=== PATIENT | female | born 1940 | race Caucasian/White ===

== ENCOUNTER → 2016-09-03 | Outpatient (CLI) | payer OTHER ==
[2016-02-16 01:36] VITALS: BP 136/60
[~2016-09-03] MED LIST: CONTRAST GIVEN MC PRN; IOHEXOL 240 MG/ML 50ML VIAL. PO ONE; IOHEXOL 300 MG/ML 75 ML VIAL IV ONE; METF500T4 PO; NAPR500T3 PO
--- NOTE | 2016-09-03 11:11 | RAD ---
Indication malignant neoplasm right breast. Staging. Axial images through the chest, abdomen and pelvis were obtained. Both oral and IV contrast were administered. Approximately 75 cc of Omnipaque 300 was administered intravenously. No prior CT imaging of the chest, abdomen or pelvis is available. CT chest: Findings. Changes of a right mastectomy are noted. The thoracic aorta appears unremarkable. There is no significant hilar or mediastinal adenopathy. A moderate hiatus hernia is noted. No acute parenchymal infiltrate is seen. There is no evidence of a dominant soft tissue mass in either lung. There is a small 4 to 5 mm nodule along the fissure in the right lung, image 25 series 2. This is likely benign. Follow-up imaging, along the lines of the Fleischner criteria, should be considered. There is no evidence of metastatic disease. There is mild scoliosis and there are degenerative changes in the thoracic spine. CT abdomen and pelvis: Findings. There is a low-density 1 cm mass in the right lobe of the liver. This is not completely characterized on this exam. It may represent an hemangioma. Other etiologies are not entirely excluded but malignant, metastatic, disease is felt unlikely. This could be further evaluated with targeted ultrasound. A definite significant finding in the liver is not seen. The spleen appears unremarkable. The gallbladder appears grossly normal. The pancreas appears unremarkable. No adrenal or renal anomalies are seen. An acute finding in the abdomen is not apparent. No acute or significant finding is seen in the pelvis. Degenerative changes are noted in the lumbar spine. IMPRESSION: No acute finding seen in the chest, abdomen or pelvis. No definite evidence of metastatic disease. Small nodule along the fissure in the right lung measuring approximately 4 mm. 1 cm mass in the liver, probably benign. Targeted ultrasound should be considered. Chronic musculoskeletal changes PQRS Compliance Statement: One or more of the following individualized dose reduction techniques were utilized for this examination: 1. Automated exposure control 2. Adjustment of the mA and/or kV according to patient size 3. Use of iterative reconstruction technique
--- NOTE | 2016-09-03 13:11 | RAD ---
Indication breast malignancy. Staging. Whole body static images were obtained. No prior bone scan imaging is available. 25 mCi of technetium labeled MDP was administered. There is increased uptake associated with the lower thoracic and lumbar spine which is almost certainly degenerative.. Scoliosis and substantial degenerative changes are noted on the CT examination performed the same day. Slightly increased uptake in the right knee is also likely degenerative. No abnormal uptake suggesting osseous metastatic disease is seen. Normal activity is seen in both kidneys and the urinary bladder. IMPRESSION: Negative study for osseous metastatic disease
== END | disposition home or self-care (01) ==
LOC: NM 08:52
PROVIDERS: ATTEND Internal Medicine Hematology & Oncology
DX: C50.911 Malignant neoplasm of unspecified site of right female breast (principal); R91.1 Solitary pulmonary nodule; K76.89 Other specified diseases of liver
CPT/HCPCS: 71260; 74177; 78306; 96374; A9503; Q9966; Q9967

== ENCOUNTER → 2016-09-30 | Outpatient (CLI) | payer OTHER ==
[2016-02-16 01:36] VITALS: BP 136/60
[~2016-09-30] MED LIST changes: -CONTRAST GIVEN MC PRN; -IOHEXOL 240 MG/ML 50ML VIAL. PO ONE; -IOHEXOL 300 MG/ML 75 ML VIAL IV ONE
--- NOTE | 2016-09-30 11:38 | RAD ---
EXAM: ABDOMINAL ULTRASOUND. HISTORY: Liver lesion. COMPARISON: 09/03/2016. FINDINGS: Sonographic evaluation of the abdomen was performed. The hepatic lesion of concern in the right lobe is not appreciated sonographically. No suspicious lesions are seen. The spleen measures 10.1 cm. The gallbladder is unremarkable without evidence of stones, wall thickening or pericholecystic fluid. There is no sonographic Rosenberg sign. The common duct measures 2 mm. The visualized portions of the head and body of the pancreas reveal no abnormality. The right kidney measures 9.8 cm. Cortical thickness and echogenicity are preserved. There is no hydronephrosis. The left kidney measures 10.4 cm. Cortical thickness and echogenicity are preserved. A 2.7 x 2.3 cm fluid echogenicity focus within the inferior aspect of the left collecting system is most likely a collection of small peripelvic cysts rather than a dilated calyx on comparison with prior CT. There is no hydronephrosis. The visualized portions of the abdominal aorta and inferior vena cava are grossly patent and normal in caliber. IMPRESSION: 1. The right hepatic lobe lesion of concern is not appreciated sonographically. A hemangioma is favored based on CT. MRI with/without contrast. Definitively characterize versus follow-up on surveillance CT.
== END ==
LOC: US 09:44
PROVIDERS: ATTEND Internal Medicine Hematology & Oncology
DX: D18.09 Hemangioma of other sites (principal); C50.911 Malignant neoplasm of unspecified site of right female breast; Z17.0 Estrogen receptor positive status [ER+]
CPT/HCPCS: 76700

== ENCOUNTER → 2017-02-08 | Outpatient (CLI) | payer OTHER ==
[2016-02-16 01:36] VITALS: BP 136/60
[~2017-02-08] MED LIST changes: +GADOBUTROL 7.5 MMOL/7.5 ML VIAL IV ONE; -NAPR500T3 PO; +NAPR500T4 PO
--- NOTE | 2017-02-08 13:19 | RAD ---
MRI abdomen without and with contrast Indication: Liver lesions seen on CT from 09/03/2016. History of breast cancer 30 years ago. Technique: Axial and coronal T2 fat sat and without fat-sat, axial T1 precontrast, axial in and out of phase gradient sequences were obtained without IV contrast. After infusion of 6mL of gadolinium-based contrast, axial T1-weighted images were obtained at multiple intervals. Comparison: Previous CT from 09/03/2016. Findings: Status post right mastectomy. Heart is normal in size. No pericardial or effusion. Liver is normal in morphology. No hepatic steatosis. There is a 1.2 cm T2 hyperintense/T1 hypointense lesion in segment 5/6 junction demonstrating nodular peripheral enhancement on arterial phase images with progressive central enhancement on delayed phase images. No other liver lesion. Spleen within normal limits. Concentrated bile or sludge in the gallbladder. No gallstones. No pericholecystic fluid of the orbital wall thickening. Intrinsic T1 signal is preserved in the pancreas. No peripancreatic inflammatory changes. Tolerex right hepatic biliary duct dilation. No main pancreatic duct dilation. Adrenal glands within normal limits. T2 corticomedullary differentiation is preserved in the kidneys. Subcentimeter T2 hyperintense lesions most likely simple renal cysts. Bilateral parapelvic cysts noted. Moderate sized sliding hiatal hernia. No retroperitoneal adenopathy. The celiac axis, SMA, renal arteries, hepatic veins, portal vein, splenic vein, SMV and renal veins are patent. Dextroscoliosis of the spine noted at the thoracal lumbar junction. No bowel obstruction. Degenerative changes noted in the visualized spine. Impression: 1. Previously seen lesion in the liver demonstrates MR characteristics compatible with slow filling hemangioma. No evidence metastatic disease. 2. Moderate-sized sliding hilar hernia.
== END | disposition home or self-care (01) ==
LOC: MRI 09:39
PROVIDERS: ATTEND Internal Medicine Hematology & Oncology
DX: C50.911 Malignant neoplasm of unspecified site of right female breast (principal); I10 Essential (primary) hypertension; Z17.0 Estrogen receptor positive status [ER+]; Z85.3 Personal history of malignant neoplasm of breast; Z79.01 Long term (current) use of anticoagulants
CPT/HCPCS: 74183; A9585

== ENCOUNTER → 2017-12-28 | Outpatient (CLI) | payer OTHER ==
[2016-02-16 01:36] VITALS: BP 136/60
[~2017-12-28] MED LIST changes: -GADOBUTROL 7.5 MMOL/7.5 ML VIAL IV ONE; +IOHEXOL 300 MG/ML 100ML VIAL. IV ONE; +IOHEXOL 300 MG/ML 100ML VIAL. ONE; +METF500T16 PO; -METF500T4 PO; +NAPR-514 PO; -NAPR500T4 PO
--- NOTE | 2017-12-28 10:45 | RAD ---
CT CHEST WO/W CONTRAST dated 12/28/2017 9:25 AM Indication: Follow-up lung nodule. History of breast cancerFOLLOW UP 4MM NODULE IN RIGHT LUNG FROM 08/23;HX RT.MASTECTOMY;OMNI 300, 75ML. Comparison: 11/03/2016 Technique: Contiguous axial imaging of the chest performed with and without the administration of 75 cc Omnipaque 300. One or more of the following individualized dose reduction techniques were utilized for this examination: 1. Automated exposure control 2. Adjustment of the mA and/or kV according to patient size 3. Use of iterative reconstruction technique Findings: Heart size within normal limits. No pericardial effusion. Scattered coronary calcifications. There are borderline enlarged precarinal and left paratracheal lymph nodes that measure about 8 mm short axis. No hilar or axillary lymphadenopathy. Thyroid gland is unremarkable. There is mild diffuse wall thickening of the thoracic esophagus, unchanged. Prominent hiatal hernia. Central airways are patent. Mild emphysema. Mild diffuse bronchial wall thickening. Small noncalcified pulmonary nodule along the major fissure on the right measures about 4 mm in size, stable from prior exam. There is also some pleural thickening at the lateral left base on image 47 that is unchanged. Minimal linear scar or atelectasis at the right lower lobe. Mild biapical scarring. No new parenchymal nodule or mass. No pleural effusion. Images of the upper abdomen unremarkable. The gallbladder is distended. Small hypodensity in the inferior right lobe liver with peripheral enhancement consistent with hemangioma, unchanged. No acute bony abnormality. Multilevel spondylosis. Evidence of prior right mastectomy, unchanged. IMPRESSION: 1. No significant interval change in small noncalcified pulmonary nodule. There is also some irregular pleural thickening at the left base that is stable. 2. Mild diffuse bronchial wall thickening and emphysema. 3. Coronary artery calcifications. 4. Low-density lesion of the liver is unchanged from prior exam and likely represents hemangioma. 5. Hiatal hernia. Electronically signed by: Oh Alfredo MD (12/28/2017 10:41 AM) [id number]
== END | disposition home or self-care (01) ==
LOC: CT 08:32
PROVIDERS: ATTEND Family Medicine
DX: J43.8 Other emphysema (principal); K44.9 Diaphragmatic hernia without obstruction or gangrene; I25.10 Atherosclerotic heart disease of native coronary artery without angina pectoris; M47.814 Spondylosis without myelopathy or radiculopathy, thoracic region; R91.8 Other nonspecific abnormal finding of lung field; Z90.11 Acquired absence of right breast and nipple; Z85.3 Personal history of malignant neoplasm of breast
CPT/HCPCS: 71270; Q9967